=== PATIENT | female | born 1945 | race Caucasian/White ===

== ENCOUNTER → 2018-06-13 | Outpatient (CLI) | payer MEDICARE, BC ==
--- NOTE | 2018-06-13 16:40 | KCIC ---
History: Screening Bilateral digital CC and MLO views were obtained with mammography and tomosynthesis. Computer aided detection was utilized with iCAD Second Look 7.2-H. Previous: September 21, 2012 and priors. There are scattered fibroglandular densities (Level 2 density).There are no spiculated masses, suspicious microcalcifications or areas of architectural distortion. Benign calcifications are stable. Upper outer breast intramammary lymph nodes are stable. Nodularity of the right subareolar breast tissue is stable considered benign. At the left upper outer breast 4 cm from the nipple there is a new subcentimeter circumscribed nodule. At the left outer breast posterior depth 14 cm from the nipple there is an oval circumscribed nodule or intramammary lymph node not apparent on the prior studies, is either new or was outside the [id number] on prior imaging. IMPRESSION: New nodules of the left breast. Further assessment with left breast sonography is advised. BI-RADS Category 0: Incomplete examination. If your mammogram demonstrates that you have dense breast tissue, which could hide abnormalities, and if you have other risk factors for breast cancer that have been identified, you might benefit from supplemental screening tests that may be suggested by your ordering physician. Dense breast tissue, in and of itself, is a relatively common condition. This information is not provided to cause undue concern, but rather to raise your awareness and to promote discussion with your physician regarding the presence of other risk factors, in addition to dense breast tissue. A report of your mammography results will be sent to you and your physician. You should contact your physician if you have any questions or concerns regarding this report. A mammogram does not have 100% sensitivity and therefore a negative imaging study should not delay further work up of a suspicious abnormality. "Our facility is accredited by the [employer] Mammography [employer]." Electronically signed by: Braulio Ro MD (06/13/2018 4:37 PM) [id number]
== END | disposition home or self-care (01) ==
LOC: KCIC MAMMO 11:01
PROVIDERS: ATTEND Family Medicine
DX: Z12.31 Encounter for screening mammogram for malignant neoplasm of breast (principal); N63.21 Unspecified lump in the left breast, upper outer quadrant; N64.89 Other specified disorders of breast
CPT/HCPCS: 77063; 77067

== ENCOUNTER → 2018-06-20 | Outpatient (CLI) | payer MEDICARE, BC ==
--- NOTE | 2018-06-20 10:35 | KCIC ---
EXAM: Left breast sonogram. HISTORY: 72-year-old female presents for evaluation of nodularity within the left breast demonstrated on a mammogram dated 06/13/2018. TECHNIQUE: Sonographic imaging of the left breast including all 4 quadrants and the retroareolar region was performed. COMPARISON: Mammogram dated 06/13/2018. FINDINGS: There is a round cyst with internal echoes likely due to debris within the 2:00 position of the left breast 4 cm from the nipple measuring 3.2 mm in maximum dimension. There is a lymph node with benign fatty hilum measuring 4.2 mm at the 3:00 position 14 cm from the nipple. There are 2 adjacent circumscribed hypoechoic lesions with eccentric internal blood flow at the 2:30 position 9 cm from the nipple measuring 5.9 mm and 2.8 mm, the appearance of which favors intramammary lymph nodes with thickened cortices. IMPRESSION: 1. Suspected lymph nodes with thickened cortices at the 2:30 position of the left breast. There is corresponding mammographic nodularity in this location. There is also a benign-appearing lymph node at the 3:00 position 14 cm from the nipple. 2. Tiny cyst within the 2:00 position of the left breast. 3. BI-RADS Category 3: Probably benign finding(s). Short term follow up with a left breast sonogram in 6 months is recommended to confirm stability. Electronically signed by: Janay Castañeda MD (06/20/2018 10:32 AM) [id number]
== END | disposition home or self-care (01) ==
LOC: KCIC US 08:28
PROVIDERS: ATTEND Family Medicine
DX: N63.21 Unspecified lump in the left breast, upper outer quadrant (principal); N63.23 Unspecified lump in the left breast, lower outer quadrant; N60.02 Solitary cyst of left breast
CPT/HCPCS: 76641

== ENCOUNTER → 2018-12-13 | Outpatient (CLI) | payer MEDICARE, BC ==
--- NOTE | 2018-12-13 16:35 | KCIC ---
Left breast ultrasound: Reason for examination: Follow-up nodules. Comparison is made to previous study dated 06/20/2018. Ultrasound examination of the left breast and axilla was performed. At the 2:00 position 4 cm from the nipple, there continues to be a small hypoechoic nodule consistent with a complicated cyst measuring 3.2 mm in size. This does not show significant change. There continues to be a small intramammary lymph node at the 3:00 position 14 cm from the nipple measuring 8.7 mm in greatest dimension. There also continues to be a small hypoechoic lesion probably representing intramammary lymph node at the 2:30 position 9 cm from the nipple measuring 7.9 mm in size which is unchanged. No new cystic or solid nodules are seen. No abnormal appearing lymph nodes are seen in the axilla. IMPRESSION: Small cystic lesion at the 2:00 position. Small nodules consistent with intramammary lymph nodes at the 2:30 and 3:00 positions. No suspicious abnormality seen. Recommend continued 6 month follow-up with ultrasound at the time of bilateral mammograms. BI-RADS Category 3: Probably Benign. "Our facility is accredited by the [employer] Mammography Program." This patient's information has been entered into a reminder system for the patient to be notified with the results of her examination and a target date for the next mammogram. Electronically signed by: Yesika Caicedo MD (12/13/2018 4:32 PM) [id number]
== END | disposition home or self-care (01) ==
LOC: KCIC US 10:38
PROVIDERS: ATTEND Family Medicine
DX: N63.23 Unspecified lump in the left breast, lower outer quadrant (principal); N63.21 Unspecified lump in the left breast, upper outer quadrant
CPT/HCPCS: 76641

== ENCOUNTER → 2019-09-12 | Outpatient (CLI) | payer MEDICARE, BC ==
--- NOTE | 2019-09-12 18:14 | KCIC ---
Bilateral diagnostic digital mammograms: Reason for examination: Follow-up nodules. Comparison is made to previous studies dated 06/13/2018 and 09/21/2012. Interpretation was made with the benefit of CAD. The skin and nipples show no abnormalities. No abnormal axillary lymph nodes are seen. The breast parenchyma is heterogeneously dense. (Breast density: Category C) There are small nodules consistent with intramammary lymph nodes in the upper outer quadrants bilaterally. There also continues be a small nodule anteriorly in the left breast laterally which may represent a small fibrocystic lesion but is stable. There are no new dominant masses, suspicious calcifications or architectural distortion. A few benign calcifications are again seen. Impression: No change in the small nodules seen in the left breast anteriorly. No evidence of malignancy. Ultrasound to follow. Your patient's mammogram demonstrates that she has dense breast tissue (breast density category C or D), which could hide abnormalities, and if she has other risk factors for breast cancer that have been identified, she might benefit from supplemental screening tests that may be suggested by you as her ordering physician. Dense breast tissue, in and of itself, is a relatively common condition. Therefore, this information is not provided to cause undue concern, but rather to raise your awareness and to promote discussion with your patient regarding the presence of other risk factors, in addition to dense breast tissue. Your patient's mammography results will be sent to her. BI-RADS Category 0: Incomplete. Needs additional imaging evaluation. Left breast ultrasound: Comparison is made to previous studies dated 12/13/2018 and 06/20/2018. Left whole breast ultrasound including evaluation of all 4 quadrants and the retroareolar and axillary regions of the left breast was performed. There are small intramammary lymph nodes at the 2:30 position 9 cm from the nipple. At the 3:00 position 3 cm from the nipple and corresponding to the lesion previously labeled 2:00 position 4 cm from the nipple, there continues to be a small 2.6 mm hypoechoic fibrocystic type lesion. No new suspicious-appearing nodules are seen. No abnormal appearing lymph nodes are seen in the left axilla. IMPRESSION: Small intramammary lymph nodes. Benign-appearing fibrocystic lesion at the 3:00 position. No suspicious abnormality seen. Recommend routine mammographic follow-up. BI-RADS Category 2: Benign. "Our facility is accredited by the [employer] Mammography [employer]." This patient's information has been entered into a reminder system for the patient to be notified with the results of her examination and a target date for the next mammogram. Electronically signed by: Yesika Caicedo MD (09/12/2019 6:11 PM) [id number]
== END | disposition home or self-care (01) ==
LOC: KCIC MAMMO 12:26
PROVIDERS: ATTEND Family Medicine
DX: R92.1 Mammographic calcification found on diagnostic imaging of breast (principal); N63.21 Unspecified lump in the left breast, upper outer quadrant; N63.11 Unspecified lump in the right breast, upper outer quadrant
CPT/HCPCS: 76641; 77066

== ENCOUNTER → 2021-04-30 | Outpatient (CLI) | payer MEDICARE, BC ==
--- NOTE | 2021-04-30 09:02 | KCIC ---
Bilateral digital screening mammograms with 3-D tomosynthesis: Reason for examination: Routine screening. Comparison is made to previous studies dated back to 06/23/2010. Bilateral mammograms in CC and oblique projections were obtained with 2-D imaging and 3-D tomosynthes is imaging on a Siemens Inspiration unit and reviewed on the workstation. Interpretation was made wit h the benefit of CAD. The skin and nipples show no abnormalities. No abnormal axillary lymph nodes are seen. The breast par enchyma is heterogeneously dense. (Breast density: Category C.) There is a small nodule with coarse c alcifications consistent with a degenerating fibroadenoma at the 9:00 B position centrally in the rig ht breast. There are small nodules consistent with intramammary lymph nodes in the upper-outer quadra nts bilaterally which are stable. There is also a small circumscribed nodule anteriorly in the left b reast at approximately the 2:00 position which is stable and likely represents a small cyst or fibroa denoma. Benign calcifications are present. Impression: No evidence of malignancy. Recommend routine screening. Your patient's mammogram demonstrates that she has dense breast tissue (breast density category C or D), which could hide abnormalities, and if she has other risk factors for breast cancer that have bee n identified, she might benefit from supplemental screening tests that may be suggested by you as her ordering physician. Dense breast tissue, in and of itself, is a relatively common condition. Therefo re, this information is not provided to cause undue concern, but rather to raise your awareness and t o promote discussion with your patient regarding the presence of other risk factors, in addition to d ense breast tissue. Your patient's mammography results will be sent to her. BI-RAD Category 2: Benign. "Our facility is accredited by the [employer] Mammography Program." This patient's information has been entered into a reminder system for the patient to be notified wit h the results of her examination and a target date for the next mammogram. Electronically signed by: Yesika Caicedo MD (04/30/2021 9:00 AM) [email or web address]
== END ==
LOC: KCIC MAMMO 07:57
PROVIDERS: ATTEND Family Medicine
DX: Z12.31 Encounter for screening mammogram for malignant neoplasm of breast (principal)
CPT/HCPCS: 77063; 77067